=== PATIENT | male | born 1930 | race Caucasian/White ===

== ENCOUNTER → 2017-05-29 | Day surgery (SDC) | payer MEDICARE ==
[~2017-05-29] MED LIST: ATROPINE SULFATE 1% OPHT SOLN 2 ML BTL ONE; BUPIVACAINE HCL PF 0.75% 30 ML VIAL ONE; DEXAMETHASONE SOD PHOS 4 MG/ML VIAL ONE; EPINEPHrine HCL (1:1000) 1 MG/ML VIAL ONE; FLURBIPROFEN 0.03% OPHT SOLN 2.5 ML BTL ONE; HYALURONIDASE/LIDOCAINE/BUPIVACAINE 11 ML SYR TL ONE; LACTATED RINGER'S 1000 ML INJ 1,000 ML ONE; NEOMYCIN/POLYMYXIN/DEXAMETHASONE OPTH OINT 3.5 GM TUBE ONE; PHENYLEPHRINE HCL 2.5 % OPTH SOLN 15 ML BTL ONE; PROPOFOL 200 MG/20 ML AMP IV ONE; SODIUM CHLORIDE 0.9% INJ 10 ML ONE; TETRACAINE 0.5% OPTH SOLN 15 ML BTL ONE; TRIAMCINOLONE ACETONIDE 40 MG/ML VIAL ONE; TROPICAMIDE 1% OPHT SOLN 15 ML BTL ONE; ceFAZolin INJ 1,000 MG VIAL ONE
--- NOTE | 2017-06-07 12:07 | TN ---
cc: WAYNE SAUCEDA MD DATE OF 1930 DATE OF SURGERY 05/29/2017 PREOPERATIVE DIAGNOSIS Dislocated intraocular lens implant and vitreous hemorrhage left eye. POSTOPERATIVE DIAGNOSIS Dislocated intraocular lens implant and vitreous hemorrhage left eye. PROCEDURE Pars plana vitrectomy and intraocular lens exchange, left eye. COMPLICATIONS None. ANESTHESIA MAC. SURGEON MD Drea DETAILS OF PROCEDURE After the patient gave informed consent. The left eye was anesthetized using retrobulbar anesthesia. He was then brought to the operating room and prepare and draped in the usual sterile fashion. A wire lid speculum was placed in the patient's left eye. A superior 180 degree conjunctival peritomy was then performed using 0.12 forceps and Billy scissors. Excellent hemostasis was obtained with the bipolar cautery. 23-gauge vitrectomy cannulas were then placed in the lower temporal, superotemporal and superonasal quadrants 3 mm posterior to the corneoscleral limbus. An infusion cannula was placed lower temporally. Superiorly a 6 mm corneoscleral shelled frown incision was made using a 64 blade, crescent knife and keratome. The vitrector was then used to remove the vitreous. The dislocated lens was grasped using intraocular forceps and maneuvered into the anterior chamber and removed. A lens was then placed into the anterior chamber. A superonasal peripheral iridectomy was performed using the vitreous cutter. Careful indirect ophthalmoscopy with scleral depression was then performed and no peripheral retinal breaks were noted. The corneal scleral incision was closed using three interrupted 10-0 nylon sutures. The two superior sclerotomy sites were closed using an interrupted 6-0 Vicryl suture. The infusion cannula was removed. The conjunctiva was re-apposed using two interrupted 7-0 Vicryl sutures. Subconjunctival injections of dexamethasone and Ancef were placed. An atropine drop, Maxitrol ointment and a patch and shield were then applied. The patient tolerated the procedure well. There were no complications. [facility]. Wayne Sauceda MD TAB/SSB /5:57 PM /12:00 PM
== END | disposition home or self-care (01) ==
LOC: ESDC 10:42
PROVIDERS: ATTEND Ophthalmology Retina Specialist
DX: H43.12 Vitreous hemorrhage, left eye (principal); T85.22XA Displacement of intraocular lens, initial encounter
CPT/HCPCS: 00142; 00145; 66986; 67036; J0171; J0690; J1100; J7120; V2630; J3301